=== PATIENT | male | born 1970 | race Caucasian/White ===

== ENCOUNTER 2018-07-17 09:45 | Emergency (ER) | payer BC ==
[~2018-07-17] VITALS: Ht 165.1 cm; Wt 83.9 kg
[2018-07-17] MEDS ORDERED: NORVASC5 MG PO (10:10)
[2018-07-17] MEDS ORDERED: PRINIVIL20 M1 PO (10:10)
[2018-07-17] MEDS ORDERED: WELLBUTRIN 75 M75 M1 PO (10:13)
[2018-07-17 10:20] LABS: ABSOLUTE NEUTROPHILS 6.2 thou/uL (1.4-8.2); BASOPHILS 1.9 % (0.0-2.0); EOSINOPHILS 2.9 % (0.0-3.0); HEMATOCRIT 44.8 % (42.0-52.0); HEMOGLOBIN 15.8 gm/dL (14.0-18.0); LYMPHOCYTES 28.5 % (24.0-44.0); MCH 34.1 pg (26.0-34.0); MCHC 35.4 g/dL (28.0-37.0); MCV 96.3 fL (80.0-100.0); MONOCYTES 5.6 % (1.0-8.0); PLATELET COUNT 319 thou/uL (150-400); POLYS 61.1 % (36.0-66.0); RBC 4.65 mil/uL (4.50-6.00); RDW 13.1 % (10.5-14.5); WBC 10.1 thou/uL (4.0-11.0)
[2018-07-17 11:13] LABS: CALCIUM 9.3 mg/dL (8.5-10.1)
[2018-07-17 11:14] LABS: POTASSIUM 4.7 mmol/L (3.5-5.1)
[2018-07-17 11:19] LABS: ALBUMIN 3.7 g/dL (3.4-5.0); MAGNESIUM 2.2 mg/dL (1.8-2.4); TOTAL BILIRUBIN 0.3 mg/dL (<0.1-1.0); TOTAL PROTEIN 7.4 g/dL (6.4-8.2)
[2018-07-17 12:00] LABS: URINE BILIRUBIN NEGATIVE (Negative); URINE BLOOD NEGATIVE (Negative); URINE CLARITY CLEAR; URINE COLOR YELLOW; URINE GLUCOSE-RANDOM* NEGATIVE (Negative); URINE KETONES NEGATIVE (Negative); URINE LEUKOCYTES-REFLEX NEGATIVE (Negative); URINE NITRITE-REFLEX NEGATIVE (Negative); URINE PROTEIN (DIPSTICK) NEGATIVE (Negative); URINE UROBILINOGEN 0.2 E.U./dl (0.2-1.0)
[2018-07-17] MEDS ORDERED: ATIVAN0.5 MG PO (12:12)
[2018-07-17 12:18] LABS: AMP/METHAMP Negative (Negative); BARBITURATES Negative (Negative); BENZODIAZEPINES Negative (Negative); COCAINE Negative (Negative); METHADONE Negative (Negative); OPIATES Negative (Negative); PCP Negative (Negative)
[2018-07-17 12:29] VITALS: BP 122/83
== END 2018-07-17 12:32 | disposition home or self-care (01) ==
LOC: ER 09:45
PROVIDERS: Physician Assistant
DX: R56.9 Unspecified convulsions (principal); T43.295A Adverse effect of other antidepressants, initial encounter; Y92.89 Other specified places as the place of occurrence of the external cause; I10 Essential (primary) hypertension; F17.210 Nicotine dependence, cigarettes, uncomplicated

== ENCOUNTER 2020-02-25 14:11 | Emergency (ER) | payer BC ==
[~2020-02-25] VITALS: Ht 165.1 cm; Wt 82.1 kg
[~2020-02-25 14:11] MED LIST: ADULT LOW DOSE81 MG PO; ATIVAN0.5 MG PO; COLACE 100 MG100 MG PO; LAMOTRIGINE150 MG PO; LEVETIRACETAM250 MG PO; LIPITOR40 MG PO; METOPROLOL SUCC25 M1 PO; MUCINEX600 MG PO; NORVASC5 MG PO; PACERONE 200 M200 M1 PO; PRINIVIL20 M1 PO; WELLBUTRIN 75 M75 M1 PO
[2020-02-25] MEDS ORDERED: BACTRIM DS TAB1 EAC1 PO ×3 (14:36→14:52)
[2020-02-25] MEDS ORDERED: KEFLEX500 M1 PO ×3 (14:36→14:52)
[2020-02-25 14:55] VITALS: BP 120/75
== END 2020-02-25 14:50 | disposition home or self-care (01) ==
LOC: ER 14:11
DX: L02.416 Cutaneous abscess of left lower limb (principal); I10 Essential (primary) hypertension; G40.909 Epilepsy, unspecified, not intractable, without status epilepticus; F17.210 Nicotine dependence, cigarettes, uncomplicated

== ENCOUNTER → 2020-04-05 | Outpatient (CLI) | payer BC ==
[~2020-04-05] MED LIST changes: +BACTRIM DS TAB1 EAC1 PO; +KEFLEX500 M1 PO
== END ==
LOC: ULTRA 13:17
PROVIDERS: ATTEND Internal Medicine
DX: M79.89 Other specified soft tissue disorders (principal)